=== PATIENT | male | born 1990 | race Caucasian/White ===

== ENCOUNTER 2020-07-25 20:29 | Emergency (ER) | payer SELFPAY ==
--- NOTE | 2020-07-25 21:20 | EDM.PDOC ---
ED HPI GENERAL MEDICAL PROBLEM - General Chief Complaint: Genitourinary Problem Stated Complaint: GROIN PAIN Time Seen by Provider: 07/25/20 20:43 Source of Information: Reports: Patient History Limitations: Reports: No Limitations - History of Present Illness INITIAL COMMENTS - FREE TEXT/NARRATIVE: Mr. Dorantes is a very pleasant 29-year-old gentleman who now presents to the ED with 3 complaints; the first of right testicular pain for the last 2 days. He describes the pain as sharp, but intermittent. If his right teste is supported, he has no pain whatsoever, but if it is unsupported, he states that it feels like he is being punched in the teste. He denies having dysuria, urinary frequency, or gross hematuria. No prior similar symptoms. His second issue is 2 to 3 months of right buttock pain, particularly if he puts pressure on it, such as with sitting, however, oddly enough, he is most comfortable sleeping in a semirecumbent position. If he sleeps supine, he feels best in the left decubitus position. His third issue is that of black skin around the back and sides of the fold of his neck, that has been present for about 1 year. He looked online and is co ncerned that it may be due to diabetes. Here in the ED, the patient's initial BP is found to be elevated at 168/100, with tachycardia 115 bpm. He is afebrile, saturating 96% on room air. Other than the above concerns, the patient denies having a recent fever, chills, sore throat, ear pain, nasal or sinus congestion, cough, dyspnea, chest pain, palpitations, nausea, vomiting, constipation, diarrhea, abdominal pain, urinary symptoms, recent weight gain or weight loss, recent bloody bowel movements or black bowel movements, recent joint aches, headaches, or rashes. The patient does not have a PCP. Right Groin Pain Score (Numeric/FACES): 5 - Related Data Allergies Allergy/AdvReac Type Severity Reaction Status Date / Time No Known Allergies Allergy Verified 07/25/20 20:50 Home Meds: Home Meds Levofloxacin [Levaquin] 1 tab PO QPM #9 tablet 07/26/20 [Rx] Past Medical History Endocrine/Metabolic History: Reports: Obesity/BMI 30+ Social & Family History - Tobacco Use Tobacco Use Status *Q: Never Tobacco User - Caffeine Use Caffeine Use: Reports: None - Alcohol Use Alcohol Use History: No - Recreational Drug Use Recreational Drug Use: No - Living Situation & Occupation Living situation: Reports: , with Spouse, with Family (3 kids) Occupation: Employed (Hedgeable truck farmer) ED ROS GENERAL - Review of Systems Review Of Systems: Comprehensive ROS is negative, except as noted in HPI. ED EXAM, GENERAL - Physical Exam Exam: See Below Exam Limited By: No Limitations General Appearance: Alert, WD/WN, No Apparent Distress Eye Exam: Bilateral Eye: EOMI, Nystagmus Ears: Normal External Exam, Hearing Grossly Normal Nose: Normal Inspection Throat/Mouth: Normal Inspection, Normal Lips, Normal Voice, No Airway Compromise Head: Atraumatic, Normocephalic Neck: Supple, Non-Tender, Full Range of Motion Respiratory/Chest: No Respiratory Distress, Lungs Clear, Normal Breath Sounds, No Accessory Muscle Use Cardiovascular: Normal Peripheral Pulses, Regular Rate, Rhythm, No Gallop, No JVD, No Murmur, No Rub Peripheral Pulses: 3+: Radial (L), Radial (R), Femoral (L), Femoral (R) GI/Abdominal: Normal Bowel Sounds, Soft, Non-Tender, No Organomegaly, No D istention, No Abnormal Bruit, No Mass (Male) Exam: No Hernia, Cremasteric Reflex, Scrotal Swelling (right), Testicular Tenderness (R) (enlarged epididymis) Back Exam: Normal Inspection, Full Range of Motion, Other (No tenderness to palpation of the right buttock) Extremities: Normal Inspection, Normal Range of Motion, No Pedal Edema, Normal Capillary Refill Neurological: Alert, Oriented, Normal Cognition, No Motor/Sensory Deficits Psychiatric: Normal Affect Skin Exam: Warm, Dry, Intact, No Rash, Other (Thickened skin to the back and bilateral sides of the neck at the fold, with black hyperpigmentation on the surface, but not in the recesses) Course - Vital Signs Last Recorded V/S: Last Vital Signs Temp 36.5 C 07/25/20 20:42 Pulse 115 H 07/25/20 20:42 Resp 20 07/25/20 20:42 BP 168/100 H 07/25/20 20:42 Pulse Ox 96 07/25/20 20:42 - Orders/Labs/Meds Orders: Active Orders 24 hr Category Date Time Status Scrotum and Contents [US] Stat Exams 07/25/20 21:11 Taken Labs: Laboratory Tests 07/25/20 07/25/20 07/25/20 Range/Units 21:32 21:32 21:32 WBC 13.46 H (4.23-9.07) K/mm3 RBC 5.40 (4.63-6.08) M/mm3 Hgb 13.7 (13.7-17.5) gm/dl Hct 43.3 (40.1-51.0) % MCV 80.2 (79.0-92.2) fl MCH 25.4 L (25.7-32.2) pg MCHC 31.6 L (32.2-35.5) g/dl RDW Std Deviation 43.0 (35.1-43.9) fL Plt Count 297 (163-337) K/mm3 MPV 10.5 (9.4-12.3) fl Neutrophils % (Manual) 64 H (40-60) % Band Neutrophils % 5 (0-10) % Lymphocytes % (Manual) 18 L (20-40) % Atypical Lymphs % 7 % Monocytes % (Manual) 5 (2-10) % Eosinophils % (Manual) 0 L (0.8-7.0) % Basophils % (Manual) 1 (0.2-1.2) Platelet Estimate Adequate Plt Morphology Comment Normal RBC Morph Comment Normal Sodium 141 (136-145) mEq/L Potassium 3.6 (3.5-5.1) mEq/L Chloride 104 (98-107) mEq/L Carbon Dioxide 28 (21-32) mEq/L Anion Gap 12.6 (5-15) BUN 19 H (7-18) mg/dL Creatinine 1.2 (0.7-1.3) mg/dL Est Cr Clr Drug Dosing 96.74 mL/min Estimated GFR (MDRD) > 60 (>60) mL/min BUN/Creatinine Ratio 15.8 (14-18) Glucose 129 H (70-99) mg/dL Hemoglobin A1c 6.1 H ( - 5.6) % Calcium 9.0 (8.5-10.1) mg/dL Total Bilirubin 0.4 (0.2-1.0) mg/dL AST 25 (15-37) U/L ALT 55 (16-63) U/L Alkaline Phosphatase 61 (46-116) U/L Total Protein 8.3 H (6.4-8.2) g/dl Albumin 3.8 (3.4-5.0) g/dl Globulin 4.5 gm/dL Albumin/Globulin Ratio 0.8 L (1-2) Urine Color (Yellow) Urine Appearance (Clear) Urine pH (5.0-8.0) Ur Specific Premier (1.005-1.030) Urine Protein (Negative) Urine Glucose (UA) (Negative) Urine Ketones (Negative) Urine Occult Blood (Negative) Urine Nitrite (Negative) Urine Bilirubin (Negative) Urine Urobilinogen (0.2-1.0) Ur Leukocyte Esterase (Negative) Urine RBC (0-5) /hpf Urine WBC (0-5) /hpf Ur Epithelial Cells (0-5) /hpf Urine Bacteria (FEW) /hpf Urine Mucus (FEW) /hpf C trachomatis DNA (PCR) N gonorrhoeae DNA (PCR) 07/25/20 07/25/20 Range/Units 21:35 21:35 WBC (4.23-9.07) K/mm3 RBC (4.63-6.08) M/mm3 Hgb (13.7-17.5) gm/dl Hct (40.1-51.0) % MCV (79.0-92.2) fl MCH (25.7-32.2) pg MCHC (32.2-35.5) g/dl RDW Std Deviation (35.1-43.9) fL Plt Count (163-337) K/mm3 MPV (9.4-12.3) fl Neutrophils % (Manual) (40-60) % Band Neutrophils % (0-10) % Lymphocytes % (Manual) (20-40) % Atypical Lymphs % % Monocytes % (Manual) (2-10) % Eosinophils % (Manual) (0.8-7.0) % Basophils % (Manual) (0.2-1.2) Platelet Estimate Plt Morphology Comment RBC Morph Comment Sodium (136-145) mEq/L Potassium (3.5-5.1) mEq/L Chloride (98-107) mEq/L Carbon Dioxide (21-32) mEq/L Anion Gap (5-15) BUN (7-18) mg/dL Creatinine (0.7-1.3) mg/dL Est Cr Clr Drug Dosing mL/min Estimated GFR (MDRD) (>60) mL/min BUN/Creatinine Ratio (14-18) Glucose (70-99) mg/dL Hemoglobin A1c ( - 5.6) % Calcium (8.5-10.1) mg/dL Total Bilirubin (0.2-1.0) mg/dL AST (15-37) U/L ALT (16-63) U/L Alkaline Phosphatase (46-116) U/L Total Protein (6.4-8.2) g/dl Albumin (3.4-5.0) g/dl Globulin gm/dL Albumin/Globulin Ratio (1-2) Urine Color Yellow (Yellow) Urine Appearance Clear (Clear) Urine pH 7.0 (5.0-8.0) Ur Specific Premier 1.025 (1.005-1.030) Urine Protein Trace H (Negative) Urine Glucose (UA) Negative (Negative) Urine Ketones Negative (Negative) Urine Occult Blood Negative (Negative) Urine Nitrite Negative (Negative) Urine Bilirubin Negative (Negative) Urine Urobilinogen 1.0 (0.2-1.0) Ur Leukocyte Esterase Negative (Negative) Urine RBC Not seen (0-5) /hpf Urine WBC 0-5 (0-5) /hpf Ur Epithelial Cells Not seen (0-5) /hpf Urine Bacteria Few (FEW) /hpf Urine Mucus Few (FEW) /hpf C trachomatis DNA (PCR) Not detected N gonorrhoeae DNA (PCR) Not detected - Re-Assessments/Exams Free Text/Narrative Re-Assessment/Exam: 07/25/20 21:12 As above, the patient has 3 complaints: 1. 2 days of right testicular pain, with tenderness on exam, concerning for epididymitis. I have ordered an ultrasound of the scrotum to evaluate for epididymitis, along with a GC/chlamydia by PCR and urinalysis by clean-catch. 2. 3 to 4 months of right buttock pain, made worse with direct pressure on the buttock, but asymptomatic at this time, concerning for sciatica. Further evaluation would require an MRI. 3. 1 year of hyperpigmented skin of the back and sides of his neck, consistent with acanthosis nigricans, concerning for diabetes. I have ordered several blood tests, including a hemoglobin A1c. 07/25/20 22:34 Ultrasound of the scrotum is read by [facility] as "Minimally increased vascularity is suggested to the right epididymal body when compared with the left. This raises the question of mild right epididymitis. No other acute scrotal pathology is otherwise appreciated." 07/26/20 00:12 The patient's CBC is remarkable for leukocytosis of 13.46, with 5% bandemia, and the remainder of his CBC being unremarkable. His CMP is remarkable for a BUN slightly elevated at 19, but with a Cr normal at 1.2, and mild hyperglycemia of 129, with the remainder of his CMP being unremarkable. His hemoglobin A1c is within normal limits at 6.1%. His urinalysis is unremarkable. His GC/chlamydia by PCR has returned negative. Based on the above, it appears that the patient has epididymitis, but unlikely due to chlamydia or gonorrhea. In accordance with current guidelines, the patient will be treated with Levaquin 500 mg daily for 10 days, along with NSAIDs, ice, and scrotal elevation. Additionally, I will refer him to Urology, in the event that his symptoms don't improve. Departure - Departure Time of Disposition: 00:23 Disposition: Home, Self-Care 01 Condition: Good Clinical Impression: Epididymitis, Acanthosis nigricans - Discharge Information *PRESCRIPTION DRUG MONITORING PROGRAM REVIEWED*: Not Applicable *COPY OF PRESCRIPTION DRUG MONITORING REPORT IN PATIENT BELKYS: Not Applicable Referrals: PCP,None [Primary Care Provider] - Lorie Bolton NP [Nurse Practitioner] - Everton Henriquez MD [Ordering Only Provider] - Forms: ED Department Discharge Additional Instructions: You were seen in the emergency room for 2 days of right testicular pain, 3 to 4 months of right buttock pain made worse with direct pressure on the buttock, and 1 year of black skin to the back and sides of your neck. Work-up in the ER included several blood tests, a urinalysis, a gonorrhea/chlamydia urine test, and an ultrasound of your testicle. Your ultrasound confirmed that you have epididymitis = swelling of the tube that takes a sperm from the testicle to the urethra. This is usually caused by bacteria, but in your case is not caused by gonorrhea or chlamydia. You have been started on the antibiotic levofloxacin (Levaquin), and a prescription for levofloxacin has been sent to the [facility], located at [facility]. [facility]. Take 1 tablet of levofloxacin every evening, starting this evening, 07/26/2020, as prescribed. Finish the entire prescription unless told otherwise by a doctor. In addition to Levaquin, we recommend that you take [id number] ibuprofen, 3 tablets (600 mg) up to every 8 hours, with food, as needed for discomfort. Additionally, we recommend that you elevate and ice your right testicle as much as possible over the next several days, until you are feeling better. If your symptoms fail to improve after about a week, please follow-up with the Urologist Dr. Everton Henriquez, in [place]. Be sure to remember that [place] is 1 hour ahead of us. Your right buttock pain is most likely due to sciatica, however, in order to confirm the diagnosis, you would need to undergo an MRI, which is not available from the ER. We recommend that you follow-up with Lorie Bolton NP, or one of the other providers in the clinic, to establish a PCP. The black skin around your neck is known as acanthosis nigricans. It is often due to diabetes, but in your case, it does not appear that you have diabetes. The cause of your condition is not known. If any other problems, please do not hesitate to return to the ER. Sepsis Event Note (ED) - Evaluation Sepsis Screening Result: No Definite Risk - Focused Exam Vital Signs: Vital Signs Temp Pulse Resp BP Pulse Ox 07/25/20 20:42 36.5 C 115 H 20 168/100 H 96 - My Orders Last 24 Hours: My Active Orders 07/25/20 21:11 Scrotum and Contents [US] Stat - Assessment/Plan Last 24 Hours: My Active Orders 07/25/20 21:11 Scrotum and Contents [US] Stat
[2020-07-25 21:57] LABS: HEMOGLOBIN A1C 6.1 %
[2020-07-25 23:48] LABS: C. TRACHOMATIS BY PCR NOT DETECTED; N. GONORRHOEAE BY PCR NOT DETECTED
[2020-07-26] MEDS ORDERED: Levofloxacin 500 MG Tab PO STA (00:16)
[2020-07-26] MEDS ORDERED: Ibuprofen 600 MG Tab PO ONE (00:17)
--- NOTE | 2020-07-26 08:42 | US ---
Testicular ultrasound: Multiple real-time images were obtained of both testicles. Both testicles have a homogeneous ultrasound appearance. No intratesticular nodule is seen. Both arterial and venous blood flow are seen within both testicles. Right epididymis has minimally increased vascularity. Mild epididymitis is possible. Left epididymis appears within normal limits. No significant hydroceles are seen. Measurements: Right testicle: 5.1 x 3.4 x 2.6 cm Left testicle: 4.9 x 3.1 x 2.6 cm Impression: 1. Minimal increased vascularity within the right epididymis suspicious for minimal epididymitis. 2. Other portions of the testicular ultrasound study appear within normal limits. Diagnostic code #3 I agree with preliminary report from [facility], finalized on 07/25/20, 11:25 PM CDT
== END 2020-07-26 00:38 | disposition home or self-care (01) ==
LOC: JD.ED 20:29
DX: N45.1 Epididymitis (principal); L83 Acanthosis nigricans; E66.9 Obesity, unspecified; Z68.42 Body mass index [BMI] 45.0-49.9, adult
CPT/HCPCS: 36415; 76870; 80053; 81001; 83036; 85007; 85027; 87491; 87591; 93975; 99284; A9270; 99283